=== PATIENT | female | born 1970 | race Caucasian/White ===

== ENCOUNTER 2020-11-25 03:40 | Inpatient (IN) ==
[2020-11-25] MEDS ORDERED: 0.9 % Sodium Chloride 250 ML ONE (04:36)
[2020-11-25 04:38] LABS: ABG Base Excess -21 mEq/L (-2 to 3); ABG HCO3 15 mEq/L (21-27); ABG Oxygen Saturation 69 % (95-98); ABG PCO2 82 mmHg (35-45); ABG PH 6.86 pH Units (7.32-7.45); ABG PO2 64 mmHg (85-104); ABG TCO2 17 mEq/L (20-26)
[2020-11-25] MEDS ORDERED: D5% in Water 1,000 ML IVC ONE (04:38)
[2020-11-25] MEDS ORDERED: Naloxone 0.4 MG/ML INJ IVP PRN (06:09)
== END 2020-11-25 07:35 | disposition expired | DRG 296 ==
LOC: ICNU
PROVIDERS: ADMIT Internal Medicine; ATTEND Internal Medicine